=== PATIENT | male | born 1975 | race Caucasian/White ===

== ENCOUNTER 2020-07-03 09:51 | Outpatient (CLI) | payer MEDICARE, SELFPAY ==
[2020-07-03 10:16] LABS: Basophils Absolute Auto 0.2 K/mm3 (0.0-0.1); Basophils Percent Auto 1.5 % (0.2-1.2); Eosinophils Absolute Auto 0.4 K/mm3 (0-0.3); Eosinophils Percent Auto 4.2 % (0-4.4); Hematocrit 43.2 % (42.0-52.0); Hemoglobin 14.9 g/dL (14.0-18.0); Immature Granulocyte Absolute 0.04 K/mm3 (0.00-0.031); Immature Granulocyte Percent A 0.4 % (0-0.5); Lymphocytes Absolute Auto 2.54 K/mm3 (0.9-3.2); Lymphocytes Percent Auto 25.2 % (18.3-44.2); Mean Corpuscular HGB Conc 34.5 g/dl (32-36); Mean Corpuscular Volume 92.7 fl (80-100); Mean Platelet Volume 9.5 fl (7.4-10.4); Monocytes Absolute Auto 0.8 K/mm3 (0.1-0.6); Monocytes Percent Auto 7.9 % (2.6-8.5); Neutrophils Absolute Auto 6.1 K/mm3 (1.3-6.7); Neutrophils Percent Auto 60.8 % (45.5-73.1); Platelet Count Result 275 k/mm3 (150-375); Red Blood Count 4.66 M/mm3 (4.6-6.20); Red Cell Distribution Width 13.2 % (11.5-14.5); White Blood Count 10.1 K/mm3 (4.5-10.0)
[2020-07-03 10:28] LABS: Alanine Aminotransferase 30 U/L (4-50); Albumin Level 4.3 g/dL (3.5-5.1); Alkaline Phosphatase 58 U/L (38-126); Anion Gap 10 mmol/L (8-16); Aspartate Amino Transferase 32 U/L (17-59); Bilirubin,Total 0.4 mg/dL (0.2-1.3); Blood Urea Nitrogen 13 mg/dL (9-20); Calcium 9.1 mg/dL (8.4-10.2); Carbon Dioxide 27 mmol/L (22-30); Chloride 104 mmol/L (98-107); Cholesterol 219 mg/dL (0-200); Estimated Glomerular Filt Rate > 60; Glucose 135 mg/dL (75-110); HDL Direct 33 mg/dL; Sodium 141 mmol/L (137-145); Triglycerides 144 mg/dL (<150)
[2020-07-03 10:39] LABS: LDL Cholesterol Direct 155 mg/dL
[2020-07-03 10:58] LABS: Prostate Specific Antigen 0.3 ng/mL (< OR = 4.0)
== END 2020-07-03 09:52 | disposition home or self-care (01) ==
LOC: ANHLAB 09:51
PROVIDERS: PCP Family Medicine; Visit Provider Family Medicine
DX: G40.909 Epilepsy, unspecified, not intractable, without status epilepticus (principal); E78.5 Hyperlipidemia, unspecified; Z12.5 Encounter for screening for malignant neoplasm of prostate
CPT/HCPCS: 36415; 80053; 80061; 80164; 80165; 84153; 85025; G0103

== ENCOUNTER 2020-08-23 13:03 | Outpatient (CLI) | payer MEDICARE, SELFPAY ==
--- NOTE | ~2020-08-23 | XR_ITS ---
XR hand RT min 3V DATE: 08/23/2020 14:13 INDICATION: Contracture TECHNIQUE: 3 views COMPARISON: None FINDINGS: There are digit contraction deformities, involving particularly the fourth and fifth digits . No fracture or dislocation, periosteal reaction or bone destruction. There is diffuse osteopenia. No erosive changes or chondrocalcinosis. IMPRESSION: Contracture deformities of the digits Osteopenia Reviewed, dictated and finalized at location A.
--- NOTE | ~2020-08-23 | MR_ITS ---
EXAMINATION: MR brain/brain stem wo con DATE: 08/23/2020 14:13 INDICATION: Epilepsy. Stroke. Right hand contracture. TECHNIQUE: Magnetic resonance imaging (MRI) of the brain and brainstem was performed without intraven ous contrast. Sequences included sagittal and axial T1-weighted FSE, axial diffusion-weighted FS EPI, axial T2*-weighted GRE, axial T2-weighted FLAIR Propeller, axial T2-weighted Propeller, coronal T2-w eighted FLAIR, and coronal T1-weighted 3D FSPGR. Apparent diffusion coefficient (ADC) maps were creat ed. COMPARISON: Brain MRI 08/25/2018, head CT 10/04/2012 FINDINGS: The hippocampi are normal and symmetric. There is no intracranial hemorrhage, acute infarct ion, or abnormal intracranial mass lesion. The ventricles are normal in size. The ventricles are norm al in size. The orbits are normal. There is mild mucosal thickening in the ethmoid sinuses. There is a trace right mastoid effusion. IMPRESSION: 1. Normal brain. Reviewed, dictated and finalized at location B. IMPRESSION: 1. Normal brain.
== END 2020-08-23 13:04 | disposition home or self-care (01) ==
PROVIDERS: PCP Family Medicine; Visit Provider Nurse Practitioner Family
DX: M24.541 Contracture, right hand (principal); G40.909 Epilepsy, unspecified, not intractable, without status epilepticus; M85.841 Other specified disorders of bone density and structure, right hand
CPT/HCPCS: 70551; 73130

== ENCOUNTER 2020-10-03 09:50 | Outpatient (CLI) | payer MEDICARE, SELFPAY ==
--- NOTE | ~2020-10-03 | DEXA_ITS ---
Bone Density Report Name: Gabriele Lilly Age: 45 Sex: Male Ethnicity: White Date of : 1975 Indication: height loss; Referring Provider: Nieves Pate Study: Bone densitometry was performed. Exam Date: October 03, 2020 Accession number: [id number] Bone Density: Region BMD T-score Z-score Classification AP Spine (L1-L4) 0.939 -1.4 -1.1 Osteopenia Femoral Neck (Left) 0.874 -0.4 0.2 Normal Total Hip (Left) 0.984 -0.3 -0.1 Normal Total Hip Bilateral Avg 0.994 -0.3 0.0 Normal Femoral Neck (Right) 0.922 -0.1 0.6 Normal Total Hip (Right) 1.003 -0.2 0.1 Normal World Health Organization criteria for BMD impression classify patients as: Normal (T-score at or above -1.0), Osteopenia (T-score between -1.0 and -2.5), or Osteoporosis (T-score at or below -2.5). 10-year Fracture Risk: FRAX not reported because: Man under age 50 Clinical Information Provided by Patient: Smokes Patient maximum height was 70 No regular weight bearing exercise Drinks caffeinated beverages Impression: The patient's bone mass is within expected range for age, gender and ethnicity. The patient has risk factors, including: smoking. Discussion: BONE DENSITY IS WITHIN EXPECTED LIMITS FOR AGE, SEX AND RACE. Bone density is within expected limits for age, sex and race at all sites measured. The patient should follow a healthful lifestyle (good nutrition with adequate calcium and vitamin D, and appropriate weight-bearing exercise). Follow-Up: Consider repeating this study in 2 to 3 years to reassess this patient's status, or sooner if there is some new clinical indication. Reported by: ASHLI on 10/03/2020 10:15:00 AM. Reviewed, dictated and finalized at location A. [facility]
== END 2020-10-03 09:51 | disposition home or self-care (01) ==
LOC: ANHIMG 09:54
PROVIDERS: PCP Family Medicine; Visit Provider Nurse Practitioner Family
DX: M85.88 Other specified disorders of bone density and structure, other site (principal)
CPT/HCPCS: 77080

== ENCOUNTER 2020-10-16 12:30 | Outpatient (RCR) | payer MEDICARE, SELFPAY ==
--- NOTE | 2020-08-22 13:33 | OTOPEVAL ---
OCCUPATIONAL THERAPY INITIAL EVALUATION REPORT 08/22/20 Patient presents with right hand contracture. 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 (+) Froment's and Tinel's. He will benefit from OT for splint fabrication to help with hand contracture, modalities, and manual therapy to help with ROM and restrict further chance of skin breakdown, wounds, and infection. Strongly recommend nerve conduction study. Thank you for referring Gabriele Lilly to [facility].? The patient is scheduled to be seen for therapy? 1-2x/week for 5 weeks. Please review, sign, date and return this plan of care ALEC. I agree with and certify that the following plan of care is medically necessary. Referring Physician Date Referring Provider: Nieves Pate NP *OT Outpatient Evaluation Start: 08/22/20 12:34 Freq: Status: Active Protocol: Document 08/22/20 12:34 TIMO (Rec: 08/22/20 13:33 TIMO [email or web address]) Therapy Assessment Status Assessment Status Assessment Status Evaluation Evaluation Information Problem Diagnosis (R) hand contracture Subjective Information Patient and patient's mom, Query Text:As Reported By Patient/ Kyara, report history: Patient Family was hospitalized last October of 2019 after having a seizure. He was in the ICU x1 week and intubated. He then spent x1 week in inpatient rehab. Upon leaving the hospital, he noted that his right hand, ulnar 2 digits, were curled. Prior Level of Function Activity Level (Last 3 Months) Hand Dominance Right Driving Yes Comments Additional Prior Level of Function Pt lives with his mom. Since Comments this injury ~10 months ago, patient has been needing help with tying shoes, writing, and cutting food. Prior to his hospitalization he lived with his mom and was independent with ADLs. Pain Assessment Timing of Pain Assessment Timing of Pain Assessment Assessment Pain Scale Pain Scale Used Numeric (1 - 10) Self Report Pain Assessment Right Hand(s) Reported Pain Level 0 Pain Description Numbness Pain Score Pain Score 0: Self Report Upper Extremity Range of Motion Scapular/ Shoulder Range of Motion Right Reason Not Measured WFL/Right Elbow/Forearm Range of Motion Right Reason Not Measured WFL/Right Wrist Range of Motion Right Reason Not Measured WFL/Right
--- NOTE | 2020-09-25 13:29 | OTOPEVAL ---
OCCUPATIONAL THERAPY RE-EVALUATION REPORT 09/25/20 As described below, patient is progressing with passive ROM with the right hand. He continues to have a claw hand deformity due to signs and symptoms of ulnar neuropathy. He is seeing a neurologist tomorrow for further evaluation. Continued OT indicated for static progressive splinting as he makes gains with his contracted hand/fingers. Goal is to progress to a less bulky splint, but the current contracture will not allow to progress to that just yet. Thank you for referring Gabriele Lilly to [facility].? The patient is scheduled to be seen for therapy? 2x/week for 4 weeks. Please review, sign, date and return this plan of care ALEC. I agree with and certify that the following plan of care is medically necessary. Referring Physician Date Referring Provider: Nieves Pate NP *OT Outpatient Re-Evaluation Start: 08/22/20 12:34 Therapy Assessment Status Assessment Status Assessment Status Re-evaluation Evaluation Information Problem Diagnosis (R) hand contracture Additional Evaluation Detail Gabriele has participated in 9 outpatient OT treatment sessions for right hand contracture. Signs and symptoms are consent with ulnar neuropathy. He has been instructed in passive ROM for the contracture and has been wearing a custom fabricated orthosis to wear between exercise sessions to keep fingers from curling back into claw deformity. He has his first appointment with a neurologist tomorrow. Subjective Information Patient and patient's mom, Query Text:As Reported By Patient/ Kyara, report history: Patient Family was hospitalized last October of 2019 after having a seizure. He was in the ICU x1 week and intubated. He then spent x1 week in inpatient rehab. Upon leaving the hospital, he noted that his right hand, ulnar 2 digits, were curled. Since working with OT ( beginning 08/22/20), he reports improved flexibility with the fingers and has less pain with passive stretching. He also notes that his sensation has improved. Pain Assessment Timing of Pain Assessment Timing of Pain Assessment Re-assessment Pain Scale Pain Scale Used Numer
--- NOTE | 2020-10-16 13:08 | OTOPEVAL ---
OCCUPATIONAL THERAPY RE-EVALUATION AND D/C NOTE 10/16/20 Patient has participated in 7 weeks of outpatient OT for right hand contracture. Signs and symptoms are consistent with ulnar neuropathy, possibly at the wrist. Wrist UD and flexion test with normal strength. At this time he has reached his maximum benefit with therapy. He has a splint as well as ROM exercises to restrict further claw hand deformity and verbalizes good understanding of his HEP. He does not follow up with a neurologist until next week. Plan to D/C today with patient independent with all materials. Thank you for referring Gabriele Lilly to [facility]. Please review, sign, date and return this D/C Note ALEC. I agree with and certify that the following plan of care is medically necessary. Referring Physician Date Admitting Provider: Attending Provider: Nieves Pate NP Referring Provider: *OT Outpatient Evaluation Start: 08/22/20 12:34 Freq: Status: Active Protocol: Document 10/16/20 12:56 TIMO (Rec: 10/16/20 13:07 TIMO [email or web address]) Therapy Assessment Status Assessment Status Assessment Status Re-evaluation Outpatient Past Medical History Past Medical History Source of Past Medical History Recalled from Previous Visit, Confirmed with Patient/Family Neurological History Hx Seizures Yes Musculoskeletal History Hx Degenerative Disk Disease Yes: Lumbosacral radiculopathy due to DDD Hx Other Musculoskeletal Disorders Yes: Lumbar spondylolysis Endocrine History Hx Diabetes Yes Psychosocial History Hx Depression Yes Evaluation Information Problem Diagnosis (R) hand contracture Additional Evaluation Detail Gabriele has participated in 13 outpatient OT treatment sessions for right hand contracture. Signs and symptoms are consent with ulnar neuropathy, but has not been able to see a neurologist yet. He has been instructed in passive ROM for the contracture and has been wearing a custom fabricated orthosis to wear between exercise sessions to keep fingers from curling back into claw deformity. His neurologist appointment is next week. Subjective Information Patient and patient's mom, Query Text:As Reported By Patient/ Kyara, report history: Patient Family was hospitalized last October of 2019 after having a seizure. He was in the ICU x1
== END 2020-10-17 10:31 | disposition home or self-care (01) ==
LOC: ANHOT 12:30
PROVIDERS: PCP Family Medicine; Visit Provider Nurse Practitioner Family
DX: M24.541 Contracture, right hand (principal)
CPT/HCPCS: 97035; 97110; 97140; 97166; 97763; L3919

== ENCOUNTER 2022-06-05 12:45 | Outpatient (CLI) | payer MEDICARE, SELFPAY ==
--- NOTE | ~2022-06-05 | CT_ITS ---
CT Abdomen and Pelvis with contrast. History: Pancreatitis. Spiral CT of the abdomen and pelvis was performed after the administration of intravenous contrast. 1 00 cc of Omnipaque 350 was administered intravenously without complication. Dose reduction technique was used on this scan by utilizing automated exposure control and iterative reconstruction technique. The dose-length product (DLP) was 961.84 mGy-cm. Findings: Scans through the lung bases demonstrate mild atelectatic change. Diffuse fatty infiltration of the liver noted. The spleen, pancreas, gallbladder, adrenals and kidney s are within normal limits. No evidence of aortic aneurysm. No lymphadenopathy is seen. There is no evidence of bowel obstruction. There is no evidence to suggest acute appendicitis or dive rticulitis. Images through the pelvis were performed. Urinary bladder unremarkable. Prostate gland and seminal ve sicles are unremarkable. No ascites is seen. Mild, chronic-appearing compression deformity of T8 note d. Impression: Diffuse fatty infiltration of the liver. Mild, chronic-appearing compression deformity of T8. Reviewed, dictated and finalized at location . [employer] Impression: Diffuse fatty infiltration of the liver. Mild, chronic-appearing compression deformity of T8.
[2022-06-05 13:08] LABS: Basophils Absolute Auto 0.2 K/mm3 (0.0-0.1); Basophils Percent Auto 1.7 % (0.2-1.2); Eosinophils Absolute Auto 0.3 K/mm3 (0-0.3); Eosinophils Percent Auto 2.8 % (0-4.4); Hemoglobin 15.3 g/dL (14.0-18.0); Immature Granulocyte Absolute 0.03 K/mm3 (0.00-0.031); Immature Granulocyte Percent A 0.3 % (0-0.5); Lymphocytes Absolute Auto 3.27 K/mm3 (0.9-3.2); Lymphocytes Percent Auto 34.3 % (18.3-44.2); Mean Corpuscular HGB Conc 35.6 g/dl (32-36); Mean Corpuscular Hemoglobin 32.1 pg (26-34); Mean Corpuscular Volume 90.3 fl (80-100); Mean Platelet Volume 9.2 fl (7.4-10.4); Monocytes Absolute Auto 0.7 K/mm3 (0.1-0.6); Monocytes Percent Auto 7.6 % (2.6-8.5); Neutrophils Absolute Auto 5.1 K/mm3 (1.3-6.7); Neutrophils Percent Auto 53.3 % (45.5-73.1); Platelet Count Result 299 k/mm3 (150-375); Red Blood Count 4.76 M/mm3 (4.6-6.20); Red Cell Distribution Width 12.6 % (11.5-14.5); White Blood Count 9.5 K/mm3 (4.5-10.0)
[2022-06-05 13:22] LABS: Alanine Aminotransferase 39 U/L (6-50); Albumin Level 4.6 g/dL (3.5-5.1); Alkaline Phosphatase 78 U/L (38-126); Amylase 61 U/L (30-110); Anion Gap 7 mmol/L (8-16); Aspartate Amino Transferase 49 U/L (17-59); Bilirubin,Total 0.5 mg/dL (0.2-1.3); Blood Urea Nitrogen 9 mg/dL (9-20); Calcium 9.1 mg/dL (8.4-10.2); Carbon Dioxide 27 mmol/L (22-30); Chloride 96 mmol/L (98-107); Estimated Glomerular Filt Rate > 60; Glucose 123 mg/dL (65-110); Lipase 85 U/L (23-300); Potassium 4.2 mmol/L (3.4-5.0); Sodium 130 mmol/L (137-145)
[2022-06-05 13:26] LABS: Hemoglobin A1C 7.5 % (<5.7)
[2022-06-05 14:32] LABS: Estimated Glomerular Filt Rate > 60
[2022-06-08 14:14] LABS: GGT 92 U/L (3-95)
== END 2022-06-05 12:46 | disposition home or self-care (01) ==
PROVIDERS: PCP Family Medicine; Visit Provider Family Medicine
DX: R10.13 Epigastric pain (principal); G40.909 Epilepsy, unspecified, not intractable, without status epilepticus; E11.65 Type 2 diabetes mellitus with hyperglycemia; K76.0 Fatty (change of) liver, not elsewhere classified
CPT/HCPCS: 36415; 74177; 80053; 80164; 80165; 82150; 82977; 83036; 83690; 85025; Q9967

== ENCOUNTER 2022-07-17 07:45 | Outpatient (CLI) | payer MEDICARE, SELFPAY ==
--- NOTE | ~2022-07-17 | NM_ITS ---
EXAM: NM gastric emptying study DATE: 07/17/2022 12:36 INDICATION: Diabetic with vomiting. Assess for gastroparesis. TECHNIQUE: A gastric emptying study was performed using the methodology of Dash BAILEY, et al. J Nucl Med 2007; 48:568-572. The patient was given a meal consisting of 2 scrambled eggs labeled with 1 mCi Tc-99m sulfur colloid, 2 slices of toast, two packages of jam, and approximately 120 mL of water. Si multaneous anterior and posterior 1-min images of the abdomen were obtained with the patient supine a t multiple time points over a total period of 4 hours. The geometric mean of anterior and posterior v iews was determined, and the percentage retention was calculated for each time point. COMPARISON: None. FINDINGS: Gastric retention of the radiotracer-labeled meal was 37%, 7%, and 6% at the 1-hour, 2-hour, and 4-ho ur time points, respectively. With this technique, apparent rapid gastric emptying is suggested by <3 0% gastric retention at 1 hour. Delayed gastric emptying is defined by gastric retention of >90% at 1 hour, >60% retention at 2 hours, or >10% retention at 4 hours. IMPRESSION: 1. Normal gastric emptying. Reviewed, dictated and finalized at location B. IMPRESSION: 1. Normal gastric emptying.
== END 2022-07-17 07:46 | disposition home or self-care (01) ==
PROVIDERS: PCP Family Medicine; Visit Provider Family Medicine
DX: R11.10 Vomiting, unspecified (principal)
CPT/HCPCS: 78264; A9541

== ENCOUNTER 2022-09-25 10:30 | Outpatient (RCR) | payer MEDICARE, SELFPAY ==
[2022-08-29 14:53] VITALS: BMI 32.5
[2022-08-29 14:56] VITALS: BMI 32.5
== END 2022-10-01 08:53 | disposition home or self-care (01) ==
LOC: ANHDMC 10:30
PROVIDERS: PCP Family Medicine; Visit Provider Family Medicine
DX: E11.65 Type 2 diabetes mellitus with hyperglycemia (principal); Z71.89 Other specified counseling; Z71.3 Dietary counseling and surveillance
CPT/HCPCS: 97802; G0108

== ENCOUNTER 2022-11-12 10:30 | Outpatient (RCR) | payer MEDICARE, SELFPAY ==
[2022-10-29 11:02] VITALS: BMI 32.3
[2022-10-29 11:23] VITALS: BMI 32.3
== END 2023-01-13 10:11 | disposition home or self-care (01) ==
LOC: ANHDMC 10:30
PROVIDERS: PCP Family Medicine; Visit Provider Family Medicine
DX: E11.65 Type 2 diabetes mellitus with hyperglycemia (principal); Z71.3 Dietary counseling and surveillance; Z71.89 Other specified counseling
CPT/HCPCS: 97803; G0108

== ENCOUNTER 2023-02-13 09:04 | Outpatient (CLI) | payer MEDICARE, SELFPAY ==
[2023-02-13 09:51] LABS: Hematocrit 48.3 % (42.0-52.0); Hemoglobin 16.8 g/dL (14.0-18.0); Mean Corpuscular HGB Conc 34.8 g/dl (32-36); Mean Corpuscular Hemoglobin 33.3 pg (26-34); Mean Corpuscular Volume 95.6 fl (80-100); Platelet Count Result 242 k/mm3 (150-375); Red Blood Count 5.05 M/mm3 (4.6-6.20); White Blood Count 9.2 K/mm3 (4.5-10.0)
[2023-02-13 10:05] LABS: Alanine Aminotransferase 35 U/L (6-50); Albumin Level 4.8 g/dL (3.5-5.1); Alkaline Phosphatase 63 U/L (38-126); Anion Gap 10 mmol/L (8-16); Aspartate Amino Transferase 45 U/L (17-59); Bilirubin,Total 0.5 mg/dL (0.2-1.3); Blood Urea Nitrogen 10 mg/dL (9-20); Calcium 9.5 mg/dL (8.4-10.2); Carbon Dioxide 26 mmol/L (22-30); Chloride 98 mmol/L (98-107); Cholesterol 142 mg/dL (0-200); Estimated Glomerular Filt Rate > 60; Glucose 98 mg/dL (65-110); HDL Direct 36 mg/dL; Potassium 4.4 mmol/L (3.4-5.0); Sodium 134 mmol/L (137-145); Triglycerides 168 mg/dL (<150)
[2023-02-13 10:16] LABS: LDL Cholesterol Direct 70 mg/dL
[2023-02-13 10:18] LABS: Creatinine Urine 127.4 mg/dL
[2023-02-13 10:22] LABS: MALB Creatinine Ratio 4.9 mg/g (0-30); Microalbumin Urine Random 6.2 mg/L (0-16.7)
[2023-02-13 10:36] LABS: Prostate Specific Antigen 0.4 ng/mL (< OR = 4.0)
[2023-02-16 14:47] LABS: Testosterone Free 57.7 pg/mL (35.0-155.0); Testosterone Total 352 ng/dL (250-1100)
== END 2023-02-13 09:05 | disposition home or self-care (01) ==
PROVIDERS: PCP Family Medicine; Visit Provider Family Medicine
DX: Z13.220 Encounter for screening for lipoid disorders (principal); E78.5 Hyperlipidemia, unspecified; N52.03 Combined arterial insufficiency and corporo-venous occlusive erectile dysfunction; Z12.5 Encounter for screening for malignant neoplasm of prostate; E11.65 Type 2 diabetes mellitus with hyperglycemia
CPT/HCPCS: 36415; 80048; 80061; 80076; 82043; 84153; 84402; 84403; 84443; 85027; G0103

== ENCOUNTER 2023-02-13 11:43 | Outpatient (RCR) | payer MEDICARE, SELFPAY | END 2023-05-06 08:38 | disposition home or self-care (01) | LOC: ANHDMC 11:43 | PROVIDERS: PCP Family Medicine; Visit Provider Family Medicine | DX: E11.65 Type 2 diabetes mellitus with hyperglycemia (principal); Z71.89 Other specified counseling; Z12.5 Encounter for screening for malignant neoplasm of prostate | CPT/HCPCS: 36415; 80048; 80061; 80076; 82043; 84153; 84402; 84403; 84443; 85027; G0103; G0108 ==

== ENCOUNTER 2023-06-26 10:30 | Outpatient (RCR) | payer MEDICARE, SELFPAY | END 2023-08-08 11:14 | disposition home or self-care (01) | LOC: ANHDMC 10:30 | PROVIDERS: PCP Family Medicine; Visit Provider Family Medicine | DX: E11.65 Type 2 diabetes mellitus with hyperglycemia (principal); Z71.89 Other specified counseling | CPT/HCPCS: G0108 ==

== ENCOUNTER → 2024-05-18 12:06 | Outpatient (CLI) | payer MEDICARE, SELFPAY ==
--- NOTE | ~2024-05-18 | XR_ITS ---
3 VIEWS LUMBAR SPINE Ordering provider: Pipo Clay MD History: . M43.06 - Spondylolysis, lumbar region HX 3 back sx . Comparison: None. FINDINGS: VERTEBRAL BODIES: No visible fracture or subluxation. DISK SPACES: Disc spacers seen at the level of L5-S1. SOFT TISSUES: Normal. IMPRESSION: No acute osseous abnormality lumbar spine. Disc spacer at the level of L5-S1. Reviewed, dictated and finalized at location A. [employer]
== END ==
LOC: EXPBETH 12:09
PROVIDERS: PCP Family Medicine; Visit Provider Family Medicine
DX: M43.06 Spondylolysis, lumbar region (principal); M51.27 Other intervertebral disc displacement, lumbosacral region
CPT/HCPCS: 72114

== ENCOUNTER 2024-07-01 13:33 | Outpatient (CLI) | payer MEDICARE, SELFPAY | END 2024-07-01 13:34 | disposition home or self-care (01) | LOC: MICIMG 13:34 | PROVIDERS: PCP Family Medicine; Visit Provider Family Medicine | DX: M43.06 Spondylolysis, lumbar region (principal); Z98.1 Arthrodesis status | CPT/HCPCS: 72148 ==

== ENCOUNTER → 2024-10-18 11:48 | Outpatient (REF) | payer MEDICARE, SELFPAY ==
--- NOTE | 2024-10-18 11:48 | S_PTH ---
PATIENT: Gabriele Lilly LOC: [facility]#:[id number] AGE/SX: 50/M ROOM: RE10/18/[address]: Silvina Barbour MD : 1975 BED: DIS: SPEC #: [id number] RECD: 10/18/24 13:00 STATUS: SHYANN NDIAYE #: [id number] ISAURA: 10/18/24 11:[address]: Silvina Barbour DEPT: [facility] Surgical RECD BY: Freddy Retana ENTERED: 10/18/24 13:00 SP TYPE: Surgical OTHR DR: Pipo Clay MD Tissues: A - Cyst Procedures: Hematoxylin and Eosin Stain Gross and Microscopic Level 4
--- OUTSIDE RECORDS SUMMARY | 2024-10-18 12:59 | XMS_ITS | Referral Summary ---
Author Organization [facility] Address [address] [place] [address] Care Team Providers Care Pediatric Neuropsychologist Name Role Phone Pipo Clay MD Primary Care Provider [phone] Daniele Mariscal MD Unavailable [phone] Tong Sawyer MD Unavailable [phone] Elena Maharaj Unavailable Unavailable Allergies Active Allergy Reactions Criticality Noted Date Comments Gabapentin Other (See comments) Low 07/22/2017 Confusion Oxycodone Shortness of breath High 04/24/2011 Medications sertraline (ZOLOFT) 100 mg tablet Take 1.5 tablets (150 mg total) by mouth daily Active clonazePAM (KlonoPIN) 0.5 mg tablet Take 1 tablet (0.5 mg total) by mouth 3 (three) times a day 1 Active tiZANidine (ZANAFLEX) 4 mg tablet Take 1 tablet (4 mg total) by mouth 3 (three) times a day 1 in the morning and 2 at bedtime 1 Active benztropine (COGENTIN) 1 mg tablet Take 1 tablet (1 mg total) by mouth daily Active HYDROcodone-acetam inophen (NORCO) 5-325 mg per tabletIndications: Pain Take 1 tablet by mouth every 4 (four) hours as needed for pain 30 tablet 2 Active ondansetron ODT (ZOFRAN-ODT) 8 mg disintegrating tabletIndications: Prevention of Post-Operative Nausea and Vomiting Take 1 tablet (8 mg total) by mouth every 8 (eight) hours as needed for nausea or vomiting 12 tablet [address] (DEPAKOTE) 250 mg EC tablet 2 Active haloperidoL (HALDOL) 2 mg tablet 2 Active OneTouch Verio test strips strip FOR USE WITH BLOOD GLUCOSE MONITORING TWICE DAILY 3 Active Farxiga 5 mg tablet Take 1 tablet (5 mg total) by mouth every morning 3 Active famotidine (PEPCID) 40 mg tablet Take 1 tablet (40 mg total) by mouth nightly at bedtime 3 Active OneTouch Delica Plus Lancet 33 gauge misc FOR USE WITH BLOOD GLUCOSE MONITORING TWICE DAILY 3 Active metFORMIN XR (GLUCOPHAGE XR) 500 mg 24 hr tablet Take 2 tablets (1,000 mg total) by mouth every evening 3 Active rosuvastatin (CRESTOR) 20 mg tablet Take 1 tablet (20 mg total) by mouth daily 3 Active haloperidoL (HALDOL) 10 mg tablet TAKE 1 TABLET BY MOUTH DAILY ALONG WITH 2 MG FOR A TOTAL DAILY DOSE OF 12 MG 3 Active Active Problems Problem Noted Date Diagnosed Date Ulnar neuropathy at wrist, right 08/07/2021 Ulnar neuropathy of right upper extremity 2020 Claw hand of right upper extremity 10/26/2020 CARSON (obstructive sleep apnea) 02/14/2020 Hypokalemia 02/14/2020 Acute respiratory failure with hypoxia 0 Assessment & Plan (02/10/2020 8:04 AM CDT): Was hypoxic when found by EMS. Patient vomited en route to ED. Patient on ventilator. Management per factory supervisor. Aspiration pneumonia of both lower lobes due to vomit 02/10/2020 Assessment & Plan (02/10/2020 8:05 AM CDT): Concern for aspiration into airway and did receive IV vancomycin, cefepime and metronidazole but now discontinued. Now on IV cefazolin for infectious process right elbow. Cellulitis of right elbow 02/10/2020 Assessment & Plan (02/10/2020 8:13 AM CDT): Erythema and swelling right elbow noted. On IV cefazolin. Plan for ultrasound. Will continue to monitor. Seizure disorder 02/10/2020 Assessment & Plan (02/10/2020 8:17 AM CDT): Valproic acid level low on presentation. In counting pills, it does appear patient would have run out of his Depakote on 02/03/2020. Generalized weakness 12/04/2018 Assessment & Plan (12/04/2018 4:30 AM CDT): Patient presented with c/o generalized weakness and difficulty with ADLs and IADLs Workup so far was unremarkable including labs and imaging studies Suspect due to side effects of Cymbalta and xanax in combination of high dose of opioids Will hold Cymbalta and xanax Decrease the dose of norco to 5/325mg QID PRN Will get PT to evaluate and treat SWCx tolu d/c planing Neurology was consulted - will follow up with recommendations Self-care deficit for feeding, bathing, and toil eting 12/04/2018 Assessment & Plan (12/04/2018 4:31 AM CDT): Patientreports significant difficluties with ADLs and IADLs PT/OT consult to evaluate and treat Patient may require d/c to acute rehab - will get SWCx for D/c planing Anxiety 12/04/2018 Assessment & Plan (12/04/2018 4:32 AM CDT): Continue with hydroxyzine Chronic low back pain 12/04/2018 Assessment & Plan (12/04/2018 4:34 AM CDT): Decrease the dose of the norco to 5/325 QID PRN Will try on lidoderm patch for pain control as needed Transaminitis 12/04/2018 Type 2 diabetes mellitus wit h complication, without long-term current use of insulin Assessment & Plan (02/10/2020 8:18 AM CDT): Glucose presently acceptable given situation. Will continue to monitor. Sliding scale insulin in place. Home metformin on hold. Acetaminophen overdose of undetermined intent Acute respiratory failure with hypoxia and hyper capnia Resolved Problems Problem Noted Date Diagnosed Date Resolved Date Severe sepsis 02/14/2020 02/16/2020 Acute metabolic encephalopathy 02/10/2020 02/14/2020 Assessment & Plan (02/10/2020 8:13 AM CDT): Exact etiology not clear. Patient now awake on ventilator with sedation. Blood cultures pending. On IV antibiotics for infectious process right elbow as noted below. Does not appear to be overdose as patient's medications match except for his Depakote which appears to have run out on 02/03/2020. Urine drug screen only positive for opiates. COVID-19 testing initiated and still in process. Will continue to monitor mental status. AJIT (acute kidney injury) 02/10/2020 Assessment & Plan (02/10/2020 8:06 AM CDT): Creatinine still elevated but better at 1.51 today. Nephrology consulted from the emergency room. Will continue to monitor. Urine output okay. Hyperkalemia 02/10/2020 02/14/2020 Assessment & Plan (02/10/2020 8:08 AM CDT): Potassium 7.6 on presentation. Did receive Lokelma, IV calcium gluconate and IV bicarb. Potassium 3.9 this morning. Nephrology following as noted. Lactic acidosis 02/10/2020 02/14/2020 Assessment & Plan (02/10/2020 8:09 AM CDT): Lactic acid as high as 8.6 on presentation. Now down to 3.9 with treatment of other issues. Metabolic acidosis 02/10/2020 0 Assessment & Plan (02/10/2020 8:10 AM CDT): Metabolic acidosis present on admission. Correcting with treatment of other processes as noted above. Non-traumatic rhabdomyolysis 02/10/2020 02/14/2020 Assessment & Plan (02/10/2020 8:12 AM CDT): Creatine kinase elevated at 7849 on admission. Now down to 6385. Patient does have seizure disorder and could have had seizure. Additionally, patient was found unresponsive. Continue to follow CK and kidney function. On IV fluids. Acetaminophen poisoning with undetermined intent, initial encounter 02/10/2020 02/14/2020 Assessment & Plan (02/10/2020 8:15 AM CDT): Acetaminophen level found to be elevated at 51.3 on presentation. Did receive Mucomyst with most recent level less than 15. LFTs with minimal elevation on presentation. Will continue to follow. Hypomagnesemia 02/10/2020 02/14/2020 Assessment & Plan (02/10/2020 8:16 AM CDT): Magnesium 1.3 today with replacement being given. Continue to follow electrolytes. Electrolyte repletion protocol in place. Social History Tobacco Use Types Packs/Day Years Used Date Smoking Tobacco: Heavy Smoker Cigarettes 0.5 20 Smokeless Tobacco: Former Tobacco Cessation:Counseling Given: Yes Comments:needs nicotine patch Alcohol Use Standard Drinks/Week Comments Yes 0 (1 standard drink = 0.6 oz pur e alcohol) AUDIT-C Answer Date Recorded Q1: How often do you have a drink containing alc ohol? 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 Gender Identity Not on file Sexual Orientation Not on file Last Filed Vital Signs Vital Sign Reading Time Taken Comments Blood Pressure 127/85 09/27/2021 12:26 PM CDT Pulse 90 09/27/2021 12:26 PM CDT Temperature 35.9 C (96.7 F) 09/27/2021 12:26 PM CDT Respiratory Rate 18 09/27/2021 12:2 6 PM CDT Oxygen Saturation 94% 09/27/2021 12: 26 PM CDT Inhaled Oxygen Concentration - - Weight 107.4 kg (236 lb 12.4 oz) 09/27/2021 6:21 AM CDT Height 177.8 cm (5' 10) 09/27/2021 6:21 AM CDT Body Mass Index 33.97 09/27/2021 6:21 AM CDT Plan of Treatment Not on file Medical Devices Implanted Type Area Manager Support Device Identifier Shelf Expiration Date Model / Serial / Lot [employer] Axoguard 3mm 15mm Coaptation Aid Connector Nerve Porcine [id number] - [id number] Implanted:Qty: 1 on 09/27/2021 by Connie Leslie MD at [facility] [employer] [id number] 10/14/2022 [id number] / / [id number] Procedures Procedure Name Priority Date/Time Associated Diagnosis Comments EGFR Routine 11/07/2021 12:50 PM CDT HEMOGLOBIN A1C Routine 11/07/2021 12:50 PM CDT LIPID PANEL Routine 11/07/2021 12:50 PM CDT HEPATITIS PANEL, ACUTE Routine 12/08/2018 5:31 AM CDT from Last 3 Months or Most Recently Relevant to Health Maintenance Results * eGFR (11/07/2021 12:50 PM CDT) eGFR 114 mL/min/1. 73 m2 LASHANDA DORANTES (NORCO) Comment: Interpretive Data Reference Interval Normal >/= 90 mL/min/1.73m2 Mildly decreased* 60 - 89 mL/min/1.73m2 Mildly to moderately decreased 45 - 59 mL/min/1.73m2 Moderately to severely decreased 30 - 44 mL/min/1.73m2 Severely decreased 15 - 29 mL/min/1.73m2 Kidney Failure < 15 mL/min/1.73m2 *Relative to young adult level Estimated glomerular filtration rate is determined by the 2020 CKD-EPI equation recommended by the National Kidney Foundation (A Unifying Approach to GFR Estimation: Recommendations of the NKF-ASK Task Force on Reassessing the Inclusion of Race in Diagnosing Kidney Disease, JASN 2020). The CKD-EPI equation should not be used for patients with unstable renal function and has not been validated in children and those over 70. Current interpretive data was last reviewed 2021. Blood 11/07/2021 12:5 0 PM CDT 11/07/2021 2:24 PM CDT us Not In File Miscellaneous LAB BLOOD ORDERABLES F inal Result Performing Organization Address City/[facility]/ZIP Co de Phone Number LASHANDA DORANTES (MICHAEL) 1 [facility] [employer] [place] [address] * (ABNORMAL) Hemoglobin A1c (11/07/2021 12:50 PM CDT) Hgb A1C 7.4(H) 4.0 - 5.6 % LASHANDA DORANTES (MICHAEL) Estimated Average Glucose 166 mg/dL LASHANDA DORANTES (MICHAEL) Comment: The ADA recommends reporting an estimated Average Glucose (eAG) with all Hemoglobin A1c results using the equation derived from a study of 507 normal and diabetic adults. Minority populations were underrepresented and children were not included. (Diabetes Care 31:7786-1481, 2008). The eAG is not equivalent to a fasting glucose. Blood 11/07/2021 12:5 0 PM CDT 11/07/2021 2:24 PM CDT us Not In File Miscellaneous LAB BLOOD ORDERABLES F inal Result Performing Organization Address City/[facility]/ZIP Co de Phone Number LASHANDA DORANTES (MICHAEL) 1 [facility] [employer] [place] [address] * (ABNORMAL) Lipid panel (11/07/2021 12:50 PM CDT) Cholesterol 269(H) 30 - 199 mg/dL LASHANDA DORANTES (MICHAEL) Comment: Interpretive Data Ages < or = 19 years Acceptable: <170 mg/dL Borderline high: 170-199 mg/dL High: >or= 200 mg/dL Ages > or = 20 years Desirable: <200 mg/dL Borderline high: 200-239 mg/dL High: >or= 240 mg/dL Literature References: 1. Expert Panel on Integrated Guidelines for Cardiovascular Health and Risk Reduction in Children and Adolescents. Pediatrics 2011;128:S213 2. NCEP Expert Panel. Circulation 2004;110:227 Current Interpretive Data was last revised on 2017. Triglycerides 447(H) <=149 mg/dL LASHANDA DORANTES (MICHAEL) Comment: Interpretive Data Ages < or = 9 years Acceptable: <75 mg/dL Borderline high: 75-99 mg/dL High: >or= 100 mg/dL Ages 10 to 20 years Acceptable: <90 mg/dL Borderline high: 90-129 mg/dL High: >or= 130 mg/dL Ages > or = 20 years Desirable: <150 mg/dL Borderline high: 150-199 mg/dL High: 200-499 mg/dL Very high: >or= 499 mg/dL Literature References: 1. Expert Panel on Integrated Guidelines for Cardiovascular Health and Risk Reduction in Children and Adolescents. Pediatrics 2011;128:S213 2. NCEP Expert Panel. Circulation 2003;110:227 Current Interpretive Data was last revised on 2017. HDL 33(L) >=40 mg/dL LASHANDA DORANTES (MICHAEL) Comment: Interpretive Data Ages < or = 19 years Acceptable: >45 mg/dL Borderline low: 40-45 mg/dL Low: <40 mg/dL Ages > or = 20 years Desirable: >or= 60 mg/dL Low: <40 mg/dL Literature References: 1. Expert Panel on Integrated Guidelines for Cardiovascular Health and Risk Reduction in Children and Adolescents. Pediatrics 2011;128:S213 2. NCEP Expert Panel. Circulation 2003;110:227 Current Interpretive Data was last revised on 2017. LDL, calculated See Comment <=129 mg/dL [facility] (MICHAEL) Comment: Unable to calculate due to elevated Triglycerides. Interpretive Data Ages < or = 19 years Acceptable: <110 mg/dL Borderline high: 110-129 mg/dL High: >or= 130 mg/dL Ages > or = 20 years Optimal: <100 mg/dL Near optimal: 100-129 mg/dL Borderline high: 130-159 mg/dL High: >160 mg/dL Literature References: 1. Expert Panel on Integrated Guidelines for Cardiovascular Health and Risk Reduction in Children and Adolescents. Pediatrics 2011;128:S213 2. NCEP Expert Panel. Circulation 2004;110:227 Current Interpretive Data was last revised on 2017. Non-HDL Cholesterol 236 mg/dL LASHANDA DORANTES (MICHAEL) Comment: Interpretive Data Ages < or = 19 years Acceptable: <120 mg/dL Borderline high: 120-144 mg/dL High: >145 mg/dL Ages > or = 20 years When triglycerides are >200 mg/dL, Non-HDL cholesterol is a secondary target of therapy with treatment goals that are 30 mg/dL greater than the LDL cholesterol target. Literature References: 1. Expert Panel on Integrated Guidelines for Cardiovascular Health and Risk Reduction in Children and Adolescents. Pediatrics 2011;128:S213 2. NCEP Expert Panel. Circulation 2004;110:227 Current Interpretive Data was last revised on 2017. Chol/HDL ratio 8 [facility] (MICHAEL) Blood 11/07/2021 12:5 0 PM CDT 11/07/2021 2:24 PM CDT us Not In File Miscellaneous LAB BLOOD ORDERABLES F inal Result LASHANDA DORANTES (MICHAEL) 1 [facility] [place] [address] * Hepatitis panel, acute (12/08/2018 5:31 AM CDT) Hep A IgM Negative Negative LASHANDA DORANTES (MICHAEL) Comment:Testing performed by : [facility], [address] [place] [address]., [address] Hep B core IgM Negative Negative LASHANDA DORANTES (MICHAEL) Comment:Testing performed by : [facility], [address] [place] [address]., [address] Hep C Ab Negative Negative LASHANDA DORANTES (MICHAEL) Comment:Testing performed by : [address] [address] HepBsAg Nonreactive Nonreactive LASHANDA DORANTES (MICHAEL) Comment:Testing performed by : [facility], [address] [place] [place] [address]., [id number] Blood specimen (specimen) 12/08/2018 5:31 AM CDT 12/08/2018 9:40 AM CDT us Jonathan Perez MD LAB MICROBIOLOGY - GENER AL ORDERABLES Final Result [facility] (MICHAEL) 1 [facility] Department [place] [address] from Last 3 Months or Most Recently Relevant to Health Maintenance Insurance [facility] MEDICARE ADVANTAGE [facility] MDCR HMO REF Advance Directives For more information, please contact: [phone] * Full Code (Latest Code Status on File) Date Activated Date Inactivated Comments 02/09/2020 9:30 PM 02/18/2020 10:23 PM * Full Code Date Activated Date Inactivated Comments 02/09/2020 8:39 PM 02/09/2020 9:30 PM * Full Code Date Activated Date Inactivated Comments 12/03/2018 9:48 PM 12/08/2018 9:43 PM Care Teams Pediatric Neuropsychologist Relationship Specialty Start Date End Date Pipo Clay MD PCP - General 01/28/17 Daniele Mariscal MD Consulting Physician Gastroenterology 12/08/18 Tong Sawyer MD [address] [place] [address] DR MONGE [address] [place] [address] Consulting Physician Neurology 02/18/20 Elena Maharaj COTA Occupational Therapist Occupational Therapy 11/01/21
--- OUTSIDE RECORDS SUMMARY | 2024-10-18 12:59 | XMS_ITS | Clinical Summary ---
Author Organization [facility] Address [address] [place] [address] Care Team Providers Care Pick Out Hand Name Role Phone Pipo Clay MD Primary Care Provider [phone] Daniele Mariscal MD Unavailable [phone] Tong Sawyer MD Unavailable [phone] Elena Maharaj Unavailable Unavailable Allergies Active Allergy [...] to ED. Patient on ventilator. Management per furniture repairer. Aspiration pneumonia of both lower lobes due [...] follow electrolytes. Electrolyte repletion protocol in place. Surgical History Surgery Date Site/Laterality Comments APPENDECTOMY Appendectomy LUMBAR FUSION 04/18/2011 Medical History Medical History Date Comments Hx Other Medical 2010 L-5 S-1 fusion Hx Other Medical 2011 hardware remova l and 2nd fusion Depression Depression Seizures (HCC) Anxiety Bipolar disorder (HCC) Family History Medical History Relation Name Comments Cancer Other 1 Family history of Cancer; Diabetes Other 2 Family history of Diabetes mellitus; Heart disease Other 3 Family history of Heart disease; Hypertension Other 4 Family history of Hypertension; Osteoarthritis Other 5 Family histor y of Osteoarthritis; Stroke Other 6 Family history of Stroke; Relation Name Status Comments Other 1 Other 2 Other 3 Other 4 Other 5 Other 6 Social History Tobacco Use Types Packs/Day Years [...] on file 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 Gender Identity Not on file Sexual Orientation Not on file Obstetrics History Last Filed Vital Signs Vital Sign Reading [...] 09/27/2021 6:21 AM CDT Plan of Treatment Health Maintenance Due Date Last Done Comments Albumin Creatinine Ratio, Urine 1974 Colon Cancer Screening-Colonoscopy 1974 Prostate Cancer Screening-PSA 1974 Dilated Eye Exam 1974 Foot Exam 1974 DTaP/Tdap/Td Vaccine (1 - Tdap) 1985 Hepatitis B Screening 02/25/1992 Regular Well Visit/Exam 18-64 02/25/1992 Pneumococcal vaccine <65 (1 of 2 - PCV) 1993 Depression Screening 02/08/2021 02/09/2020, 12/04/19 19 Hemoglobin A1C 05/10/2022 11/07/2021, 12/08/2018 Lipid Panel 11/07/2022 11/07/2021, 10/0 11/2019, 12/08/2018, Additional history exists eGFR 11/07/2022 11/07/2021, 12/3 , 02/15/2020, Additional history exists Covid-19 Vaccine (3 - 2023-2 5 season) 2024 08/25/2020, 07/28/2020 Zoster Vaccine (1 of 2) 02/25/2024 Influenza Vaccine (Season Ended) 2025 Hepatitis C Screening Completed 12/08/2018 Medical Devices Implanted Type Area Janitor Device Identifier Shelf Expiration Date Model / Serial / Lot [employer] Axoguard 3mm 15mm Coaptation Aid Connector Nerve Porcine [id number] - [id number] Implanted:Qty: 1 on 09/27/2021 by Connie Leslie MD at [facility] [employer] [id number] 10/14/2022 [id number] / / [id number] Procedures Procedure Name Priority Date/Time Associated Diagnosis Comments EGFR Routine 11/07/2021 12:50 PM CDT HEMOGLOBIN A1C Routine 11/07/2021 12:50 PM CDT LIPID PANEL Routine 11/07/2021 12:50 PM CDT HEPATITIS PANEL, ACUTE Routine 12/08/2018 5:31 AM CDT from Last 3 Months or Most Recently Relevant to Health Maintenance Results * eGFR (11/07/2021 12:50 PM CDT) eGFR 114 mL/min/1. 73 m2 LASHANDA DORANTES ([place]) Comment: Interpretive Data Reference Interval Normal >/= [...] of Race in Diagnosing Kidney Disease, JASN 202). The CKD-EPI equation should not be used for patients with unstable renal function and has not been validated in children and those over 70. Current interpretive data was last reviewed 2021. Blood 11/07/2021 12:5 0 PM CDT 11/07/2021 2:24 PM CDT us Not In File Miscellaneous LAB BLOOD ORDERABLES F inal Result Performing Organization Address [facility] Co de Phone Number LASHANDA DORANTES (MICHAEL) 1 [facility] [place] [address] * (ABNORMAL) Hemoglobin A1c (11/07/2021 12:50 PM CDT) Hgb A1C 7.4(H) 4.0 - 5.6 % LASHANDA DORANTES (MICHAEL) Estimated Average Glucose 166 mg/dL LASHANDA DORANTES ([place]) Comment: The ADA recommends reporting an estimated Average Glucose (eAG) with all Hemoglobin A1c results using the equation derived from a study of 507 normal and diabetic adults. Minority populations were underrepresented and children were not included. (Diabetes Care 31:1373-0493, 2008). The eAG is not equivalent to a fasting glucose. Blood 11/07/2021 12:5 0 PM CDT 11/07/2021 2:24 PM CDT us Not In File Miscellaneous LAB BLOOD ORDERABLES F inal Result Performing Organization Address [facility] Co de Phone Number LASHANDA [facility] (MICHAEL) 1 [facility] [place] [address] * (ABNORMAL) Lipid panel (11/07/2021 12:50 PM [...] LDL, calculated See Comment <=129 mg/dL LASHANDA DORANTES (MICHAEL) Comment: Unable to calculate due to [...] last revised on 2017. Chol/HDL ratio 8 [facility] (MICHAEL) Blood 11/07/2021 12:5 0 PM CDT 11/07/2021 2:24 PM CDT us Not In File Miscellaneous LAB BLOOD ORDERABLES F inal Result Performing Organization Address City/[facility]/ZIP Co de Phone Number LASHANDA [facility] (MICHAEL) 1 [facility] [place] [address] * Hepatitis panel, acute (12/08/2018 5:31 AM CDT) Hep A IgM Negative Negative [facility] (MICHAEL) Comment:Testing performed by : [facility], [address] [place] [address]., [id number] Hep B core IgM Negative Negative [facility] (MICHAEL) Comment:Testing performed by : [facility], [address] [place] [address]., [address] Hep C Ab Negative Negative [facility] (MICHAEL) Comment:Testing performed by : [facility], [address] [place] [address]., [address] HepBsAg Nonreactive Nonreactive [facility] (MICHAEL) Comment:Testing performed by : [facility], [address] [place] [address]., [id number] Blood specimen (specimen) 12/08/2018 5:31 AM CDT 12/08/2018 9:40 AM CDT us Jonathan Perez MD LAB MICROBIOLOGY - GENER AL ORDERABLES Final Result LASHANDA DORANTES (MICHAEL) 1 [facility] [place] [address] from Last 3 Months or Most Recently Relevant to Health Maintenance Insurance [facility] [address] HMO REF [address] [facility] [address] [place] [id number] [facility] MEDICARE ADVANTAGE [facility] MDCR HMO REF Advance Directives For more information, please contact: [phone] * Full Code (Latest Code Status on File) Date Activated Date Inactivated Comments 02/09/2020 9:30 PM 02/18/2020 10:23 PM * Full Code Date Activated Date Inactivated Comments 02/09/2020 8:39 PM 02/09/2020 9:30 PM * Full Code Date Activated Date Inactivated Comments 12/03/2018 9:48 PM 12/08/2018 9:43 PM Care Teams Pick Out Hand Relationship Specialty Start Date End Date Pipo Clay MD PCP - General 01/28/17 Daniele Mariscal MD Consulting Physician Gastroenterology 12/08/18 Tong Sawyer MD [address] [place] [address] [place] [address] Consulting Physician Neurology 02/18/20 Elena Maharaj COTA Occupational Therapist Occupational Therapy 11/01/21
--- OUTSIDE RECORDS SUMMARY | 2024-10-18 12:59 | XMS_ITS | Clinical Summary ---
Author Organization [facility] Address [address] [place] [address] Phone Care Team Providers Care Blueprint Assembler Name Role Phone Pipo Clay MD Primary Care Provider [phone] Allergies No known active allergies Medications HYDROcodone-acet aminophen (NORCO) 5-325 mg tablet Take 1 Tablet by mouth every 4 hours as needed for Pain, Moderate. Active HYDROmorphone (DILAUDID) 4 mg tablet Take 4 mg by mouth every 8 hours as needed for Pain. Active dextroamphetamin e-amphetamine (ADDERALL) 15 mg tablet Take 15 mg by mouth daily. Active diazepam (VALIUM) 5 mg tablet Take 1 Tablet (5 mg) by mouth every 8 hours as needed for Spasm or Discomfort. 30 Tablet None 10/22/2015 Active benztropine (COGENTIN) 0.5 mg tablet Take 0.5 mg by mouth 2 times daily. 12/08/2018 Active divalproex (DEPAKOTE ER) 250 mg Extended Release 24 hour tablet Take 250 mg by mouth 2 times daily. 02/18/2020 Active famotidine (PEPCID) 20 mg tablet Take 20 mg by mouth daily. Active haloperidoL (HALDOL) 5 mg tablet Take 5 mg by mouth daily at bedtime. 12/08/2018 Active sertraline (ZOLOFT) 100 mg tablet Take 150 mg by mouth daily. Active Social History Tobacco Use Types Packs/Day Years Used Date Smoking Tobacco: Every Day Cigarettes Alcohol Use Standard Drinks/Week Comments Yes 0 (1 standard drink = 0.6 oz pur e alcohol) 1 drink/week Sex and Gender Information Value Date Recorded Sex Assigned at Not on file Legal Sex Male 6:05 PM CDT Gender Identity Not on file Sexual Orientation Not on file Last Filed Vital Signs Vital Sign Reading Time Taken Comments Blood Pressure 123/87 12/29/2020 12:42 AM CDT Pulse 117 12/29/2020 12:42 AM CDT Temperature 37.2 C (98.9 F) 12/29/2020 12:42 AM CDT Respiratory Rate 18 12/29/2020 12:42 AM CDT Oxygen Saturation 96% 12/29/2020 12:42 AM CDT Inhaled Oxygen Concentration - - Weight 106.6 kg (235 lb) 12/28/2020 6:03 PM CDT Height 177.8 cm (5' 10) 12/28/2020 6:03 PM CDT Body Mass Index 33.72 12/28/2020 6:03 PM CDT Plan of Treatment Health Maintenance Due Date Last Done Comments DIABETES ANNUAL FOOT EXAM 02/25/1992 DIABETES ANNUAL RETINAL EXAM 02/25/1992 DIABETES MICROALBUMIN ANNUAL SCREEN 02/25/1992 LDL CHOLESTEROL ANNUAL 02/25/1992 DTAP/TDAP/TD VACCINES (1 - Tdap) 1993 HEPATITIS B VACCINES (1 of 3 - 19+ 3-dose series) 02/03 COLORECTAL SCREENING 2019 Colorectal Cancer Screening 2019 FIT-DNA Q 3 years 2019 FIT/FOBT Q 1 year 2019 Flex Sig/CT Colonography Q 5 years 2019 DIABETES HBA1C Q 6 MONTHS 06/10/2019 12/08/2018 INFLUENZA VACCINE (#1) 2023 ZOSTER VACCINE (1 of 2) 02/25/2024 Insurance [address] [place], [place] [id number] [place] [id number] Care Teams Blueprint Assembler Relationship Specialty Start Date End Date Pipo Clay MD [address] [place] [address] PCP - General Family Practice 10/22/15
--- OUTSIDE RECORDS SUMMARY | 2024-10-18 12:59 | XMS_ITS | Clinical Summary ---
Author Organization [facility] Address [address] [place] [address] Phone Care Team Providers Care Poultry Scientist Name Role Phone Pipo Clay MD Primary Care Provider [phone] Social History Tobacco Use Types Packs/Day Years Used Date Smoking Tobacco: Never Assessed Sex and Gender Information Value Date Recorded Sex Assigned at Not on file Legal Sex Male 10:08 PM CDT Gender Identity Not on file Sexual Orientation Not on file Plan of Treatment Health Maintenance Due Date Last Done Comments Hepatitis C Virus (HCV) Screening 1974 TdaP Immunization 1974 Hepatitis B Immunization (1 of 3 - 19+ 3-dose series) 1993 Cologuard 2019 Colonoscopy 2019 Colorectal Cancer Screening 2019 Immunochemical Fecal Occult Blood 2019 SARS-COV-2 Immunization (3 - 2023- season) 2024 08/25/2020, 07/28/2020 Pneumococcal Immunization (5 0+ years) (1 of 1 - PCV) 02/25/2024 Zoster Immunization (1 of 2) 02/25/2024 Influenza Immunization (Seas on Ended) 2025 Respiratory Syncytial Virus (RSV) Immunization (Adult) (1 - 1-dose 75+ series) 2049 Human Papillomavirus (HPV) Immunization Aged Out No longer eligible b ased on patient's age to complete this topic Meningococcal Immunization (ACWY) Aged Out No longer eligible b ased on patient's age to complete this topic Rotavirus Immunization Aged Out No lo nger eligible based on patient's age to complete this topic Insurance MEDICARE C [employer] on file MEDICARE C [employer] Care Teams Poultry Scientist Relationship Specialty Start Date End Date Pipo Clay MD [address] [place] [address] PCP - General Family Medicine 09/10/18
== END ==
LOC: ANHLAB 11:48
PROVIDERS: PCP Family Medicine; Visit Provider Plastic Surgery
DX: L72.0 Epidermal cyst (principal)
CPT/HCPCS: 88305